=== PATIENT | male | born 1975 | race Caucasian/White ===

== ENCOUNTER 2016-03-02 15:54 | Outpatient (RCR) | payer OTHER | END 2016-03-15 | LOC: M OUTALCOH 15:54 | PROVIDERS: ATTEND Psychiatry & Neurology Psychiatry | DX: F10.20 Alcohol dependence, uncomplicated (principal) ==

== ENCOUNTER 2016-05-10 08:00 | Outpatient (RCR) | payer OTHER | END 2016-05-13 | LOC: M OUTALCOH 08:00 | PROVIDERS: ATTEND Psychiatry & Neurology Psychiatry | DX: F10.20 Alcohol dependence, uncomplicated (principal) ==

== ENCOUNTER 2016-06-07 08:00 | Outpatient (RCR) | payer OTHER | END 2016-06-12 | LOC: M OUTALCOH 08:00 | PROVIDERS: ATTEND Psychiatry & Neurology Psychiatry | DX: F10.20 Alcohol dependence, uncomplicated (principal) ==

== ENCOUNTER 2016-07-05 11:41 | Outpatient (RCR) | payer OTHER | END 2016-07-13 | LOC: M OUTALCOH 11:41 | PROVIDERS: ATTEND Psychiatry & Neurology Psychiatry | DX: F10.20 Alcohol dependence, uncomplicated (principal) ==

== ENCOUNTER → 2017-08-03 | Outpatient (CLI) | payer OTHER | LOC: M OUTALCOH 07:39 | DX: Z13.9 Encounter for screening, unspecified (principal); F10.20 Alcohol dependence, uncomplicated ==

== ENCOUNTER → 2018-09-28 | Outpatient (CLI) | payer OTHER | LOC: M SLEEP HO 12:35 | PROVIDERS: ATTEND Internal Medicine Pulmonary Disease | DX: G47.30 Sleep apnea, unspecified (principal) ==

== ENCOUNTER → 2019-07-25 | Outpatient (CLI) | payer OTHER ==
--- NOTE | 2019-07-31 12:50 | SLEEPCENT ---
DATE OF STUDY: 07/25/2019 ORDERED BY: Dr. Anand Nocturnal polysomnography was performed for the titration of pressure therapy in this patient with a clinical diagnosis of obstructive sleep apnea syndrome supported by home testing revealing a respiratory event index of 81 with desaturations to 56%. For testing, the patient was fit with a IIIMOBI Simplus full-face mask of medium size and 8 cm of water pressure was initially applied to the circuit and the lights were extinguished. 7 hours and 35 minutes of data were reviewed. There were 404 minutes of sleep identified. Sleep latency was short at 6.5 minutes. REM latency was normal at 100 minutes. Sleep architecture improved. There was evidence of REM rebound following optimal pressure therapy. Overall sleep efficiency was 90.5%. The patient's electrocardiogram showed a sinus rhythm with an average heart rate of 80 beats per minute. Electroencephalogram (EEG) showed fairly normal waveforms for awake and sleep. There was some EKG bleed through, but no focal events were identified. Persistence of respiratory events prompted an increase in the C-PAP pressure. Despite optimal mask fit and minimal air leak, the patient was changed to a bilevel device. Best sleep was seen on a bilevel pressure of inspiratory 25 over expiratory of 21, with which pressure the patient slept through REM without respiratory event or oxygen desaturation in the supine posture. IMPRESION: Obstructive sleep apnea syndrome (G47.33). RECOMMENDATION: Nightly use of bilevel pressure therapy, inspiratory 25/expiratory 21.
== END ==
LOC: M SLEEP 20:00
PROVIDERS: ATTEND Internal Medicine Pulmonary Disease
DX: G47.33 Obstructive sleep apnea (adult) (pediatric) (principal)

== ENCOUNTER 2023-03-21 07:51 | Day surgery (SDC) | payer OTHER ==
[~2023-03-21] VITALS: Ht 177.8 cm; Wt 131.1 kg
[2023-03-21] MEDS: NS 1,000 ML IV ONE (08:13)
[2023-03-21 09:42] VITALS: TEMP 96.9
[2023-03-21 10:03] VITALS: BP 169/98; O2SAT 97
== END 2023-03-21 10:16 | disposition home or self-care (01) ==
LOC: M OPP 07:51
PROVIDERS: ATTEND Internal Medicine Gastroenterology
DX: D12.2 Benign neoplasm of ascending colon (principal); D12.3 Benign neoplasm of transverse colon; D12.8 Benign neoplasm of rectum; K64.8 Other hemorrhoids; K57.30 Diverticulosis of large intestine without perforation or abscess without bleeding; K92.1 Melena; F17.200 Nicotine dependence, unspecified, uncomplicated; G47.30 Sleep apnea, unspecified; Z99.89 Dependence on other enabling machines and devices